=== PATIENT | male | born 1940 | race Caucasian/White ===

== ENCOUNTER 2019-12-07 15:50 | Emergency (ER) | payer OTHER, SELFPAY ==
[2019-12-07 16:02] VITALS: BP 162/94; PULSE 74; RESP 16; TEMP 36.5; O2SAT 99
--- NOTE | 2019-12-07 16:14 | W.ED.GENAD ---
Discharge Plan Disposition Patient Disposition: HOME Condition: Good Discharge Details Chief Complaint: Orthopedic Clinical Impression: Acute wrist pain, Ankle sprain Primary Care Provider: [facility] Provider: Jumana Holt Home Meds and New Rx's Prescriptions: Continued amlodipine 2.5 mg Tablet 2.5 mg PO DAILY RF: 0 warfarin 3 mg Tablet 3 mg PO DAILY RF: 0 pravastatin 20 mg Tablet 20 mg PO QHS RF: 0 hydrochlorothiazide 25 mg Tablet 25 mg PO DAILY RF: 0 atenolol 50 mg Tablet 50 mg PO DAILY RF: 0 nitroglycerin 0.4 mg Tablet, Sublingual 0.4 mg SUBLINGUAL Q5-15M PRNRF: 0 Discharge Instructions Instructions: Ankle Sprain (ED), Scaphoid Fracture (ED) Additional Instructions: Encourage rest, ice, elevation of your left wrist and left ankle. Tylenol as needed for discomfort. Please continue with your ankle brace as needed to help with discomfort, and wear this for at least the next week. In regard to the left wrist, I am concerned that he may have suffered a scaphoid injury although your x-ray is reassuring for no acute fracture today. However, as we discussed, I would like for you to remain in the brace until reevaluated in 2 weeks. Repeat imaging will likely need to be done. Please contact your primary care tomorrow to discuss follow-up options. If you develop new or worsening symptoms please seek care urgently once again. Discharge Data Discharge Date/Time-TO BE ENTERED AT DEPARTURE: 12/07/19 18:20 Medical Decision Making Patient is a pleasant 79-year-old [id number] male, accompanied by his , with chief complaint of left and left ankle pain. He reports that 2 hours prior to arrival he was grocery shopping. He states that he tried to back up caught his heel on a object in the grocery store and fell backwards. He denies striking his head, no loss of conscious. Denies neck or back pain. Patient is anticoagulated on warfarin. States that he stuck out his left hand attempt to catch himself and suffered injury to the left thumb. He is indicating primarily the area of the MCP joint is area of discomfort although he does endorse some discomfort over the snuffbox as well. Sensation, capillary refill, or ligamentous exam are all intact. He does have good mobility of the thumb. No notable deformity. No swelling or ecchymosis. Patient also suffered injury to the left ankle with pain primarily over the lateral malleolus. He has been ambulatory since the fall. His did note a very superficial abrasion with no true break in the skin along the lateral aspect of the ankle. Patient is tender over the lateral malleolus but pain seems to be maximal over the ATFL. He has no pain proximally over the fibular head or neck. No pain over the fifth metatarsal. He has good range of motion. No swelling. Intact pedal pulses, brisk capillary refill. Plan to obtain x-ray of both areas of injury. Will give Tylenol for discomfort. FINDINGS: Bones/joints: There is no evidence of acute fracture.There is no evidence of malalignment or dislocation. Degenerative changes in the medial and lateral malleolus Soft tissues: Lateral malleolar soft tissue swelling IMPRESSION: There is no evidence of acute fracture.There is no evidence of malalignment or dislocation FINDINGS: Bones/joints: There is no evidence of acute fracture.There is no evidence of malalignment or dislocation. Degenerative changes in the thumb carpometacarpal joint. Bone on bone in this joint There is no evidence of acute fracture.There is no evidence of malalignment or dislocation. Soft tissues: Normal. IMPRESSION: 1. There is no evidence of acute fracture.There is no evidence of malalignment or dislocation. 2. There is no evidence of acute fracture.There is no evidence of malalignment or dislocation. FINDINGS: Bones/joints: Joint space narrowing in the PIP joints and DIP joints consistent with degenerative changes Degenerative changes in the thumb carpometacarpal joint. There may be an old avulsion fracture adjacent to the trapezium There is no evidence of acute fracture.There is no evidence of malalignment or dislocation. Soft tissues: Normal. IMPRESSION: There is no evidence of acute fracture.There is no evidence of malalignment or dislocation. Discussed these findings with the patient is significant other. As the patient continues to have pain over the anatomical snuffbox, I do feel that thumb spica for immobilization would be appropriate. Patient lives in [place], he will contact his primary care tomorrow to schedule II week appointment for reevaluation. In regard to the left ankle, his history and exam is most concerning for ankle sprain. Encourage rest, ice, elevation. Tylenol as needed for discomfort. He will be fitted with a lace up ankle brace to help with swelling. He is able to ambulate on this well without assistance. He will follow up for his ankle when he does for his wrist. Patient was given return precautions. All of his questions and concerns were addressed and he is in agreement this plan. HPI General Mode of arrival: ambulatory. Date/Time Provider Initiated Documentation: 12/07/19 16:08. Limitations to Documentation: no limitations. Information obtained by: patient and family (). History of Present Illness 79 year old M presents to the emergency department with the chief complaint of Left thumb and left ankle pain, described as moderate, with intensity rated at 6. Quality is described as aching, and is localized to the left, upper extremity and lower extremity. Patient reports no radiation. Patient started experiencing this hour(s) and it has been constant. Immobilization improves symptom(s), Movement worsens symptoms . Patient notes no other symptoms.. Patient did receive the following treatments prior to arrival, none Related Data Home Medications Medication Instructions Recorded Confirmed amlodipine 2.5 mg PO DAILY 12/07/19 12/07/19 atenolol 50 mg PO DAILY 12/07/19 12/07/19 hydrochlorothiazide 25 mg PO DAILY 12/07/19 12/07/19 nitroglycerin 0.4 mg SUBLINGUAL Q5-15M PRN 12/07/19 12/07/19 pravastatin 20 mg PO QHS 12/07/19 12/07/19 warfarin 3 mg PO DAILY 12/07/19 12/07/19 Allergies Allergy/AdvReac Type Severity Reaction Status Date / Time No Known Allergies Allergy Unverified 12/07/19 15:59 General Stated Complaint: Orthopedic TWYLA: 3 Review of Systems Constitutional Constitutional: Reports as per HPI, Denies chills, Denies fever(s), Denies headache(s) and Denies weakness ENT Ears, Nose, Mouth, and Throat: Denies headache(s) Cardiovascular Cardiovascular: Reports as per HPI Respiratory Respiratory: Reports as per HPI and Denies cough Musculoskeletal Musculoskeletal: Reports as per HPI and Denies tingling Integumentary/Breasts Skin/Breast: Reports as per HPI, Denies rash and Denies wounds Neurologic Neurologic: Reports as per HPI, Denies headache(s), Denies tingling, Denies paresthesias and Denies weakness [facility] Social History Smoking/Tobacco Use Status: Never Alcohol Intake: never Drug use: Never Do you feel safe at home: Yes Do you feel safe in your relationship?: Yes Exam Const General: cooperative, healthy appearing, comfortable, no acute distress, well developed and well groomed Nutritional Appearance: well nourished and overweight Orientation: alert and awake Resp Effort & Inspection: normal respiratory effort, able to speak in complete sentences and no respiratory distress Cardio Rate: regular rate Rhythm: regular rhythm Skin General skin exam: no rashes or lesions noted Lesions: no lesions Rashes: no rashes Trauma: no lacerations or abrasions Neuro General: patient alert and patient awake Cognition: normal cognition Speech: speech normal Gait: normal gait Motor: muscle tone normal throughout Sensory Exam: no sensory deficits noted Extrem Left upper extremity: normal to inspection, full ROM, normal capillary refill, no joint enlargement, elbow/forearm Details: normal to inspection, normal ROM and distal pulses intact; no tenderness, no swelling, no abrasions, no lacerations, no ecchymosis and no crepitus, wrist Details: normal to inspection, tenderness Location: of the anatomic snuffbox; not of the distal radius, not of the distal ulna, not of the dorsal wrist and not of the volar wrist, normal ROM, normal vascular exam and radial pulse present; no swelling, no unusual warmth, no abrasions, no lacerations, no ecchymosis, no crepitus and no deformity and hand Details: normal to inspection, normal capillary refill, neuromotor exam normal, neurosensory exam normal, tendon exam normal Location: of the thumb, tenderness Location: of the thumb Location: at the MCP joint and at the proximal phalanx, vascular exam Details: radial pulse present and normal capillary refill, normal ROM of fingers and no swelling; no unusual warmth, no lacerations, no ecchymosis and no crepitus Left lower extremity: normal capillary refill, knee Details: normal to inspection (no pain over the proximal fibula) and normal ROM; no tenderness and no swelling, lower leg Details: normal to inspection and no edema; no tenderness, no localized swelling, no palpable cords and no deformity, ankle Details: abnormal to inspection (mild swelling lateral ankle) Details: not obviously dislocated, bone not obviously exposed and nt erythematous, tenderness Location: of the lateral malleolus and of the anterior talofibular ligament; not of the achilles tendon, swelling Details: laterally, no edema, abnormal ROM Details: pain with active ROM Details: with plantar flexion and with dorsiflexion and abrasion (lateral ankle); no warmth, no lacerations, no ecchymosis, no crepitus, no penetrating wound and achilles tendon exam normal and foot Details: normal capillary refill, toes with normal ROM, no edema, vascular exam Details: dorsalis pedis pulse present and normal capillary refill and motor-sensory exam Details: light-touch normal; no tenderness, no unusual warmth, no abrasions, no lacerations, no ecchymosis and no crepitus Psych Appearance: grossly normal and well kempt Mental Status: mental status grossly normal Speech and Movement: speech and movement normal Course Vital Signs Vital signs: Vital Signs Temperature 36.5 C 12/07/19 16:02 Pulse 74 12/07/19 16:02 Respiratory Rate 16 12/07/19 16:02 Blood Pressure 162/94 H 12/07/19 16:02 Pulse Oximetry 99 12/07/19 16:02 Temperature 36.5 C 12/07/19 16:02 Temperature Source Temporal Artery Scan 12/07/19 16:02 Pulse 74 12/07/19 16:02 Respiratory Rate 16 12/07/19 16:02 Respiratory Effort Non-Labored 12/07/19 16:10 Blood Pressure 162/94 H 12/07/19 16:02 Blood Pressure Position Sitting 12/07/19 16:02 Pulse Oximetry 99 12/07/19 16:02 Oxygen Delivery Method Room Air 12/07/19 16:02 Oxygen Flow Rate 0 12/07/19 16:02 Pain Level 6 12/07/19 16:02
--- NOTE | 2019-12-07 16:15 | DI.RAD_ITS ---
EXAM: XR HAND LT COMPLETE CLINICAL HISTORY: ALICIA TECHNIQUE: COMPARISON: CR,XR XR WRIST LT COMP NAVICULAR from 12/07/2019 FINDINGS: Three views were obtained. There are severe degenerative changes at the greater multangular 1st meta carpal joint. No fractures identified. IMPRESSION:
--- NOTE | 2019-12-07 16:15 | DI.RAD_ITS ---
EXAM: XR WRIST LT COMP NAVICULAR CLINICAL HISTORY: FOOSH TECHNIQUE: COMPARISON: No exams were available for comparison FINDINGS: Four views were obtained. There are severe degenerative changes at the greater multangular 1st metac arpal joint. There is no evidence of acute fracture or dislocation. IMPRESSION:
--- NOTE | 2019-12-07 16:15 | DI.RAD_ITS ---
EXAM: XR ANKLE LT COMPLETE CLINICAL HISTORY: fall, lateral malleolar pain TECHNIQUE: COMPARISON: No exams were available for comparison FINDINGS: Three views were obtained. The ankle mortise is well maintained. There is no evidence of acute frac ture. IMPRESSION:
[2019-12-07] MEDS: Acetaminophen 500 MG TAB PO (16:45)
--- NOTE | 2019-12-07 17:19 | DI.VRAD_ITS ---
PROCEDURE INFORMATION: Exam: XR Left Wrist Exam date and time: 12/07/2019 4:30 PM Age: 79 years old Clinical indication: Other: Trauma TECHNIQUE: Imaging protocol: XR Left wrist. Views: 3 or more views. COMPARISON: No relevant prior studies available. FINDINGS: Bones/joints: There is no evidence of acute fracture.There is no evidence of malalignment or dislocation. Degenerative changes in the thumb carpometacarpal joint. Bone on bone in this joint There is no evidence of acute fracture.There is no evidence of malalignment or dislocation. Soft tissues: Normal. IMPRESSION: 1. There is no evidence of acute fracture.There is no evidence of malalignment or dislocation. 2. There is no evidence of acute fracture.There is no evidence of malalignment or dislocation. Dictated and Authenticated by: Annette Corrales MD. Ordering:LUCINA Denney MD
--- NOTE | 2019-12-07 17:19 | DI.VRAD_ITS ---
PROCEDURE INFORMATION: Exam: XR Left Hand Exam date and time: 12/07/2019 4:30 PM Age: 79 years old Clinical indication: Other: Trauma TECHNIQUE: Imaging protocol: XR Left hand. Views: 3 or more views. COMPARISON: No relevant prior studies available. FINDINGS: Bones/joints: Joint space narrowing in the PIP joints and DIP joints consistent with degenerative changes Degenerative changes in the thumb carpometacarpal joint. There may be an old avulsion fracture adjacent to the trapezium There is no evidence of acute fracture.There is no evidence of malalignment or dislocation. Soft tissues: Normal. IMPRESSION: There is no evidence of acute fracture.There is no evidence of malalignment or dislocation. Dictated and Authenticated by: Annette Corrales MD. Ordering:LUCINA Denney MD
--- NOTE | 2019-12-07 17:20 | DI.VRAD_ITS ---
PROCEDURE INFORMATION: Exam: XR Left Ankle Exam date and time: 12/07/2019 4:30 PM Age: 79 years old Clinical indication: Other: Trauma TECHNIQUE: Imaging protocol: XR Left ankle. Views: 3 or more views. COMPARISON: No relevant prior studies available. FINDINGS: Bones/joints: There is no evidence of acute fracture.There is no evidence of malalignment or dislocation. Degenerative changes in the medial and lateral malleolus Soft tissues: Lateral malleolar soft tissue swelling IMPRESSION: There is no evidence of acute fracture.There is no evidence of malalignment or dislocation. Dictated and Authenticated by: Annette Corrales MD. Ordering:LUCINA Denney MD
== END 2019-12-07 18:20 | disposition home or self-care (01) ==
PROVIDERS: Emergency Provider Physician Assistant
DX: M25.532 Pain in left wrist (principal); S93.492A Sprain of other ligament of left ankle, initial encounter; W18.31XA Fall on same level due to stepping on an object, initial encounter
CPT/HCPCS: 29125; 29515; 99284; 73110; 73130; 73610; L1902; L3908